=== PATIENT | female | born 1935 | race Caucasian/White ===

== ENCOUNTER 2017-01-07 11:41 | Emergency (ER) | payer MEDICARE ==
[~2017-01-07] VITALS: Ht 162.6 cm; Wt 66.0 kg
[2017-01-07 11:41] VITALS: BP 154/67; PULSE 61; RESP 20; TEMP 98.4; O2SAT 96
[~2017-01-07 11:41] MED LIST: ALBU0.086 INH; ALBU6.7H INH; ATEN-102 PO; ATOR20TA PO; CYCL1PAK PO; ESTR1TAB PO; FENT25DI TD; FISH100020 PO; GLIP5 PO; HYDR-3129 PO; IPRA0.02 INH; LISI-360 PO; LOPI600T PO; METF1000 PO; NIFE1TAB85 PO; SERT-132 PO
[2017-01-07] MEDS ORDERED: oxyCODONE/ACETAMINOPHEN 5 MG/325 MG TAB PO ONE (12:00)
[2017-01-07] MEDS ORDERED: GEMF600T PO (12:01)
[2017-01-07] MEDS ORDERED: ALBU0.08 NEB (12:01)
[2017-01-07] MEDS ORDERED: FURO1TAB60 PO (12:01)
[2017-01-07] MEDS ORDERED: ATEN50TA PO (12:01)
[2017-01-07] MEDS ORDERED: ALBU6.7H INH (12:01)
[2017-01-07] MEDS ORDERED: HYDR-3366 PO (12:01)
[2017-01-07] MEDS ORDERED: CYCL1TAB29 PO (12:01)
[2017-01-07] MEDS ORDERED: CARD120C4 PO (12:01)
[2017-01-07] MEDS ORDERED: GLIP5TAB8 PO (12:01)
[2017-01-07] MEDS ORDERED: RELAFEN PO (12:01)
[2017-01-07] MEDS ORDERED: ATOR20TA15 PO (12:01)
--- NOTE | 2017-01-07 12:34 | RADRPT ---
EXAM DATE/TIME: 01/07/2017 12:15 [facility] COMPARISON: CT ABDOMEN & PELVIS W/O CONTRAST, October 25, 2015, 2:15. INDICATIONS : Fall. Tripped over oxygen tubing at home. RADIATION DOSE: 57.32 CTDIvol (mGy) ; Patient motion MEDICAL HISTORY : Hypertension. Chronic obstructive pulmonary disease. Skin cancer. SURGICAL HISTORY : Hysterectomy. ENCOUNTER: Initial ACUITY: 1 day PAIN SCALE: 5/10 LOCATION: Left parietal TECHNIQUE: Multiple contiguous axial images were obtained of the head. Using automated exposure control and adj ustment of the mA and/or kV according to patient size, radiation dose was kept as low as reasonably a chievable to obtain optimal diagnostic quality images. DICOM format image data is available electro nically for review and comparison. FINDINGS: CEREBRUM: The ventricles are normal for age. No evidence of midline shift, mass lesion, hemorrhage or acute in farction. No extra-axial fluid collections are seen. POSTERIOR FOSSA: The cerebellum and brainstem are intact. The 4th ventricle is midline. The cerebellopontine angle i s unremarkable. EXTRACRANIAL: The visualized portion of the orbits is intact. SKULL: The calvaria is intact. No evidence of skull fracture. CONCLUSION: 1. No acute intracranial abnormality is identified. Mynor Edouard MD on January 07, 2017 at 12:30 Board Certified Radiologist. This report was verified electronically.
--- NOTE | 2017-01-07 12:40 | RADRPT ---
EXAM DATE/TIME: 01/07/2017 12:15 [facility] COMPARISON: No previous studies available for comparison. INDICATIONS : Fall. Tripped over oxygen tubing. Neck pain. RADIATION DOSE: 26.57 CTDIvol (mGy) MEDICAL HISTORY : Hypertension. Chronic obstructive pulmonary disease. Skin cancer. SURGICAL HISTORY : Hysterectomy. ENCOUNTER: Initial ACUITY: 1 day PAIN SCALE: 6/10 LOCATION: Left neck TECHNIQUE: Volumetric scanning of the cervical spine was performed. Multiplanar reconstructions in the sagittal, coronal and oblique axial planes were performed. Using automated exposure control and adjustment o f the mA and/or kV according to patient size, radiation dose was kept as low as reasonably achievable to obtain optimal diagnostic quality images. DICOM format image data is available electronically f or review and comparison. FINDINGS: Soft tissues are negative other than some vascular calcifications at the carotid bifurcations. Bony structures are intact with normal alignment no evidence fracture, com pression, subluxation, or destructive change and the odontoid is normal relationship there are C1. Mu ltilevel degenerative changes are appreciated mild narrowing of disc spaces with uncovertebral hypert rophy at C4-5 encroachment on the right neural foramen at C3-4 on the left neural foramen and and the re is suggestion of disc protrusion centrally at C6-7. Multilevel lateral mass facet arthritic change additionally appreciated. CONCLUSION: Multilevel degenerative changes as described. No acute bony injury. Evelio Lamar MD on January 07, 2017 at 12:33 Board Certified Radiologist. This report was verified electronically.
--- NOTE | 2017-01-07 12:52 | PD ---
Physical Exam Date Seen by Provider: Jan 07, 2017 Time Seen by Provider: 12:46 Narrative 81-year-old female presents to the emergency department after a fall where she tripped over her oxygen tubing. Patient alert and oriented. Patient sustained a laceration to the left parietal aspect of her scalp. I was asked by provider , Dr. Humphrey to repair the laceration. Data Data Last Documented VS Vital Signs Date Time Temp Pulse Resp B/P (MAP) Pulse Ox O2 Delivery O2 Flow Rate FiO2 01/07/17 11:41 98.4 61 20 154/67 (96) 96 01/07/17 11:41 Nasal Cannula 4.00 Orders Orders Oxycodone-Acetamin 5-325 Mg (Percocet (01/07/17 12:00) Ct Brain W/O Iv Contrast(Rout) (01/07/17 ) Ct Cerv Spine W/O Contrast (01/07/17 ) MDM Supervised Visit with FLAVIA: Yes Narrative Course Well-nourished well-developed 81-year-old female with a 3 cm laceration to the left parietal aspect of her skull. I was asked by provider, Dr. Humphrey to repair the laceration. The laceration was repaired using Maria Alejandra. Please see my procedural narrative. Dr Humphrey retains care of this patient. Please see her documentation for further details and disposition. Procedures Procedure Narrative LACERATION LOCATION: Left lateral parietal aspect of skull LENGTH: 3 cm NUMBER OF STITCHES/MARIA ALEJANDRA: 3 maria alejandra REPAIR: The area of the laceration was prepped with Betadine and sterilely draped. The wound was copiously irrigated and explored without evidence of foreign body, tendon injury or neurovascular injury. The wound was closed using 3 maria alejandra. This was a single layer repair. A sterile dressing was applied. The patient was advised to keep the dressing clean and dry. Patient tolerated the procedure well. Goldie Mckeon Jan 07, 2017 12:52
--- NOTE | 2017-01-07 13:03 | PD ---
HPI Chief Complaint: Fall Time Seen by Provider: 11:45 Travel History International Travel<30 days: No Contact w/Intl Traveler<30days: No Traveled to known affect area: No History of Present Illness HPI This is an 81-year-old female who presents to the emergency department having tripped over her oxygen tubing falling hitting her head on the left side. She did not lose consciousness. She denies being on any blood thinners. She has moderate severity pain in the left side of her head, constant, with no associated vomiting. The incident happened immediately prior to arrival. Patient denies any other injuries. She had a tetanus shot within the last year. PFSH Past Medical History Arthritis: Yes Asthma: Yes Autoimmune Disease: No Heart Rhythm Problems: Yes (SVT ) Cancer: Yes (SKIN CANCER. ) Cardiovascular Problems: Yes (PSVT ) High Cholesterol: Yes Chemotherapy: No Congestive Heart Failure: Yes COPD: Yes Diabetes: Yes Patient Takes Glucophage: No Diminished Hearing: No Endocrine: Yes Gastrointestinal Disorders: Yes (IRRITABLE BOWEL SYNDROME. ) Genitourinary: No Hypertension: Yes Immune Disorder: No Musculoskeletal: Yes Neurologic: Yes Psychiatric: No Reproductive: No Respiratory: Yes (COPD) Immunizations Current: Yes Radiation Therapy: No Tetanus Vaccination: < 5 Years Influenza Vaccination: Yes ?: Not Menopausal: Yes : 4 Para: 4 Past Surgical History Abdominal Surgery: No Body Medical Devices: PLATE IN RIGHT LOWER LEG, Cardiac Surgery: No Ear Surgery: No Endocrine Surgery: No Eye Surgery: No Genitourinary Surgery: No Gynecologic Surgery: Yes (VAGINAL HIS ) Hysterectomy: Yes Neurologic Surgery: Yes (LUMBAR LAMINECTOMY 1977 ) Oral Surgery: No Thoracic Surgery: No Other Surgery: Yes Social History Alcohol Use: No Tobacco Use: No Substance Use: No Allergies-Medications (Allergen,Severity, Reaction): Coded Allergies: latex (Unverified Allergy, Intermediate, 01/07/17) meperidine (Unverified Allergy, Intermediate, 01/07/17) penicillin G (Unverified Allergy, Intermediate, 01/07/17) Reported Meds & Prescriptions Reported Meds & Active Scripts Active Reported Cardizem CD 24 HR (Diltiazem CD 24 HR) 120 Mg Caper 120 Mg PO DAILY [Relafen] 1 Tab PO DAILY Lasix (Furosemide) 40 Mg Tab 40 Mg PO DAILY [place] (Hydrocodone-Acetaminophen) 10-325 Mg Tab 1 Tab PO Q6H PRN Glipizide 5 Mg Tab 5 Mg PO DAILY Take 30 minutes before a meal Gemfibrozil 600 Mg Tab 600 Mg PO BIDAC Take 30 minutes prior to breakfast and dinner. Flexeril (Cyclobenzaprine HCl) 10 Mg Tab 10 Mg PO TID Atorvastatin (Atorvastatin Calcium) 20 Mg Tab 20 Mg PO HS Atenolol 50 Mg Tab 50 Mg PO DAILY Albuterol Neb (Albuterol Sulfate) 2.5 Mg/3 Ml Neb 2.5 Mg NEB Q4HR NEB While awake Proventil Hfa 6.7 GM Inh (Albuterol Sulfate) 90 Mcg/Act Aer 1 Puff INH Q4H PRN Review of Systems Except as stated in HPI: all other systems reviewed are Neg Physical Exam Narrative GENERAL:Well appearing, no acute distress SKIN: 3 cm laceration over the left temporal area. HEAD: Atraumatic. Normocephalic. EYES: Pupils equal and round. No injection or drainage. ENT: Moist mucous membranes NECK: Trachea midline. Cervical collar in place. CARDIOVASCULAR: Regular rate and rhythm. No murmur appreciated. RESPIRATORY: Clear to auscultation. Breath sounds equal bilaterally. GASTROINTESTINAL: Abdomen soft, non-tender, nondistended. MUSCULOSKELETAL: No obvious deformities. NEUROLOGICAL: Awake and alert. No obvious cranial nerve deficits. Moving all extremities. PSYCHIATRIC: Appropriate mood and affect; insight and judgment normal. Data Data Last Documented VS Vital Signs Date Time Temp Pulse Resp B/P (MAP) Pulse Ox O2 Delivery O2 Flow Rate FiO2 01/07/17 11:41 98.4 61 20 154/67 (96) 96 01/07/17 11:41 Nasal Cannula 4.00 Orders Orders Oxycodone-Acetamin 5-325 Mg (Percocet (01/07/17 12:00) Ct Brain W/O Iv Contrast(Rout) (01/07/17 ) Ct Cerv Spine W/O Contrast (01/07/17 ) MDM Medical Decision Making Medical Screen Exam Complete: Yes Emergency Medical Condition: Yes Interpretation(s) Afebrile, no tachycardia, mild hypertension Last [address] 01/07/17 0000 Signed Impressions: Service Date/Time: Saturday, January 07, 2017 12:15 - CONCLUSION: 1. No acute intracranial abnormality is identified. Mynor Edouard MD Cervical Spine CT 01/07/17 0000 Signed Impressions: Service Date/Time: Saturday, January 07, 2017 12:15 - CONCLUSION: Multilevel degenerative changes as described. No acute bony injury. Evelio Lamar MD Differential Diagnosis Subdural hematoma, epidural hematoma, subarachnoid hemorrhage, cervical spine fracture, laceration Narrative Course This is an 81-year-old female who presents to the emergency department with a laceration on the left side of her head from where she had a mechanical fall. Given her age CT of the head and cervical spine were obtained which were reassuring. Laceration was repaired by nurse practitioner. Patient will be discharged home. Diagnosis Primary Impression: Scalp laceration Qualified Codes: S01.01XA - Laceration without foreign body of scalp, initial encounter Additional Impression: Closed head injury Qualified Codes: S09.90XA - Unspecified injury of head, initial encounter Patient Instructions: General Instructions Additional Instructions: If you develop headache, difficulty walking, difficulty talking, weakness, numbness, lightheadedness or severe pain return to the emergency department. If you are not improved in 2 days follow up with your primary care physician without fail. If you develop fevers, redness, swelling, or discharge from your wound return to the emergency room. Keep your wound dry for 24 hours. After that time, wash gently with warm soap and water. Do not use peroxide. Do not soak in baths or go swimming. Have your joe removed in 5-7 days. Med/Other Pt SpecificInfo: No Change to Meds Disposition: 01 DISCHARGE HOME Condition: Stable Rylee Humphrey MD Jan 07, 2017 13:03
[2017-01-07 13:19] VITALS: BP 138/63
== END 2017-01-07 13:20 | disposition home or self-care (01) ==
LOC: PHED 11:41
DX: S01.01XA Laceration without foreign body of scalp, initial encounter (principal); S09.90XA Unspecified injury of head, initial encounter; W01.0XXA Fall on same level from slipping, tripping and stumbling without subsequent striking against object, initial encounter; Z99.81 Dependence on supplemental oxygen; J44.9 Chronic obstructive pulmonary disease, unspecified; I10 Essential (primary) hypertension
CPT/HCPCS: 12002; 70450; 72125